=== PATIENT | female | born 2005 | race Two or more races ===

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

== ENCOUNTER 2024-01-25 08:19 | Emergency (ER) | payer MEDICAID, SELFPAY ==
[2024-01-25] VITALS (9 sets, daily range): BP systolic 85–103; BP diastolic 46–65; PULSE 69–88; RESP 12–16; TEMP 36.9–37.2; O2SAT 98–100; BMI 22.0
--- NOTE | ~2024-01-25 | US_ITS ---
EXAMINATION: US , LIMITED CLINICAL INFORMATION: Abdominal and back pain. 19 weeks' . COMPARISON: None available. TECHNIQUE: Ultrasound sonographic evaluation of the gravid uterus. FINDINGS: Placenta is posterior and free of the os. No retroplacental collections. Amniotic fluid volume appears normal. Single live intrauterine gestation is observed, cephalic. Normal movements are seen in the cardiac activity is noted to be 158 BPM. The cervix is closed. Note that this is a limited study and a formal anatomic survey was not performed. Dating metrics were not performed on this exam. And can't be said is that a 4 chamber heart regular rate and rhythm is observed and a three-vessel cord within the helical cord insertion site is seen. US/US OB limited IMPRESSION: Single live intrauterine gestation noted. Placenta posterior and free of the os.
--- NOTE | ~2024-01-25 | US_ITS ---
EXAMINATION: US RETROPERITONEAL LIMITED (RENAL ONLY) CLINICAL INFORMATION: Back pain. COMPARISON: None available. TECHNIQUE: Renal ultrasound FINDINGS: RIGHT KIDNEY: 10.6 x 4.3 x 5.7 cm (SAG x AP x TRV). The kidney is normal in size, contour, and echogenicity. Renal cortical thickness is normal. No calculi or focal parenchymal lesions. No hydronephrosis. There is mild prominence of extrarenal pelvis and dilated right ureter proximally measured 1.0 cm LEFT KIDNEY: 11.2 x 4.3 x 4 point cm (SAG x AP x TRV). The kidney is normal in size, contour, and echogenicity. Renal cortical thickness is normal. No calculi or focal parenchymal lesions. No hydronephrosis. There is questionable small pleural effusion on the left US/US renal BI IMPRESSION: Hydroureter on the right and questionably small pleural effusion on the left.
--- NOTE | 2024-01-25 08:46 | ED.GENADULT ---
HPI - General Adult General Chief complaint: Back Pain/Injury Stated complaint: back pain, dizzy, nausea / 19 weeks preg Time Seen by Provider: 01/25/24 08:45 Source: patient and RN notes reviewed Mode of arrival: ambulatory Limitations: no limitations History of Present Illness ED Provider: Lizzy Kennedy PA-C HPI narrative: This is a 18-year-old female, 19 weeks , anemia, currently followed by [facility], who presents emergency department with complaints of right low back pain x3 days. Patient reports that over the last 3 days she has had right low back pain that is constant and worsens with positional changes. She states that she has had back pain throughout her however states that this back pain is different. She also endorses some dizziness and nausea upon standing. She denies any urinary or bowel retention or incontinence. Denies any numbness or tingling. No weakness. Denies any recent trauma or injury. Denies any fevers, chills, chest pain, shortness of breath. She does report some abdominal discomfort, she states that the pain she was told is due to the stretching of her abdominal wall because of the , denies worsening over the last several days. She denies any vaginal bleeding or abnormal vaginal discharge. She does report that yesterday she developed vaginal itchiness and started herself on a topical cream that her OBGYN has prescribed during her in the past. She wishes to be tested for gonorrhea and chlamydia. She denies any other complaints or concerns at this time. complaint: Back pain Onset (ago): day(s) Radiation: non-radiation Pain Consistency: constant Relieving factors: immobilization Exacerbating factors: movement Associated symptoms: denies other symptoms Treatments prior to arrival: none Related Data Previous Rx's ?Medication ?Instructions ?Recorded diphenhydramine HCl 25 mg capsule 25 mg PO Q6H PRN itching #15 caps 08/20/21 (Benadryl) prednisone 20 mg tablet 40 mg (2 x 20 mg) PO DAILY #10 tabs 08/20/21 docusate sodium 100 mg capsule 100 mg PO BID PRN constipation #30 01/07/22 (Colace) caps ferrous sulfate 325 mg (65 mg 325 mg PO DAILY #30 tabs 01/07/22 iron) tablet nitrofurantoin 100 mg PO BID 5 days #10 caps 01/07/22 monohydrate/macrocrystals 100 mg capsule (Macrobid) ondansetron 4 mg disintegrating 4 mg PO Q8H PRN nausea and 01/07/22 tablet vomiting #20 tabs L norgest/E estradiol-E estrad 1 tab PO DAILY 84 days #84 ea 01/13/22 0.15 mg-30 mcg (84)/10 mcg(7) tabs,3mos (Seasonique) omeprazole 20 mg capsule,delayed 20 mg PO DAILY #30 caps 08/18/22 release cyclobenzaprine 5 mg tablet 5 mg PO TID PRN muscle spasm #14 04/01/23 tabs ibuprofen 600 mg tablet 600 mg PO Q8H PRN pain #20 tabs 04/01/23 lidocaine 5 % topical patch 1 patch topical DAILY #30 ea 04/01/23 amoxicillin 875 mg-potassium 1 tab PO BID 10 days #20 tabs 10/22/23 clavulanate 125 mg tablet prednisone 50 mg tablet 50 mg PO DAILY 5 days #5 tabs 10/22/23 cephalexin 500 mg capsule 500 mg PO QID 7 days #28 caps 01/25/24 Allergies Allergy/AdvReac Type Severity Reaction Status Date / Time insect venom [MOSQUITO] Allergy Mild SWELLING Verified 01/25/24 08:40 Review of Systems Review of Systems: Yes all other systems are reviewed and are negative Constitutional: Constitutional: Reports as per [facility] Past Medical History Attestation statement: The following information was validated with the patient. Medical History No known health problems Surgical History No history of previous surgery Social History Social History Alcohol intake: never Patient Tobacco Use Status: Never used Tobacco Smoked in Last 30 Days: No Advance Directives: No Do you have a plan to hurt others: No Plan Patient : Yes Physical Exam ED Vital Signs: Vital Signs - 24 hr 01/25/24 08:36 01/25/24 08:44 01/25/24 09:24 Temperature 98.9 F 98.9 F 98.4 F Pulse Rate 85 85 78 Respiratory Rate 16 16 16 Blood Pressure 94/53 L 94/53 L 95/54 L Pulse Oximetry 98 98 100 Oxygen Delivery Method Room Air Room Air Room Air 01/25/24 09:37 01/25/24 09:37 01/25/24 09:38 Temperature Pulse Rate 77 79 88 Respiratory Rate Blood Pressure 95/54 L 91/46 L 103/50 L Pulse Oximetry Oxygen Delivery Method 01/25/24 10:00 01/25/24 12:18 01/25/24 14:12 Temperature 98.6 F 98.7 F Pulse Rate 76 69 84 Respiratory Rate 16 16 12 Blood Pressure 85/51 L 96/60 102/65 Pulse Oximetry 100 100 98 Oxygen Delivery Method Room Air Room Air BMI result Body Mass Index 22.0 Const General: cooperative, comfortable and no acute distress Orientation/consciousness: patient oriented x3 Limitations: no limitations HENMT Head: Yes normal to inspection, Yes normocephalic and Yes atraumatic Ears: hearing grossly normal bilaterally General nose exam: Normal external nose present Face and sinus: Yes normal facial exam Mouth: Normal oral and palatal mucosa present, oropharynx normal and moist mucous membranes Throat: Yes posterior oropharynx normal Eyes General: appearance normal, both eyes and all related structures Eyelids: Yes eyelids normal Conjunctivae: conjunctivae normal Sclerae: sclerae normal Pupils: Equal, round and reactive pupils present EOM: EOMs intact bilaterally Neck Neck: Yes normal visual inspection, Yes full ROM and Yes no lymphadenopathy Lymphatic: no lymphadenopathy noted Chest Chest palpation & inspection: normal inspection of the chest Resp Effort & Inspection: normal respiratory effort and able to speak in complete sentences Auscultation: clear to auscultation bilaterally, no crackles, no rales, no rhonchi and no wheezes Cardio Rate: regular rate Rhythm: regular rhythm Heart sounds: S1 normal heart sound present and S2 normal heart sound present GI Other: Gravid abdomen appropriate for current , nontender Inspection: Yes normal to inspection General: Yes no CVA tenderness Back/Spine/Pelvis Other: Tenderness palpation along the right low back and right SI joint, no CVA tenderness. Back: no CVA tenderness Skin General skin exam: no rashes or lesions noted Trauma: no lacerations or abrasions Wounds: no wounds Neuro General: patient oriented x3 and moves all extremities Cranial nerves: Yes Equal, round and reactive pupils present Extrem General: Yes normal to inspection Right upper extremity: normal to inspection Left upper extremity: normal to inspection Right lower extremity: normal to inspection Left lower extremity: normal to inspection Course Reevaluation(s) Reevaluation #1: Labs returned, patient with microcytic anemia at 8.4/28.7, urine appears to be contaminated, requested repeat urine sample to rule out infection. Repeat does appear to be infectious, given Time: 12:30 Reevaluation #2: Repeat urine appears to be infected. Will treat with Keflex. Patient is anemic, she is feeling much better no longer dizzy. Advised follow-up with the OBGYN tomorrow, she has an appointment at 10:00 a.m.. She is well-appearing, vital signs improved. Given strict return precautions. She understands agrees with plan. Patient stable for discharge. Medications Administered Discontinued Medications Generic Name Dose Route Start Last Admin Trade Name Freq PRN Reason Stop Dose Admin Sodium Chloride 1,000 mls @ 999 mls/hr 01/25/24 10:09 01/25/24 13:49 Ns IV 01/25/24 11:09 Infused .Q1H1M ONE Infusion Medical Decision Making Medical Decision Making MDM Narrative: This is a 18-year-old female, , 19 weeks , who presents emergency department with complaints of atraumatic right low back pain x3 days. On arrival, mildly hypotensive at 94/53, she is nontoxic appearing. She has had no vaginal bleeding or cramping. Pain has been constant. She is also endorsing some lightheadedness and dizziness upon standing. She states that she has had some urinary frequency and urgency however attributes this to her . She has no CVA tenderness. Differential diagnoses include UTI, obstructive uropathy, lumbago. This patient presents with back pain most consistent with lumbago. Differential diagnoses includes lumbago versus musculoskeletal spasm / strain versus sciatica.No back pain red flags on history or physical. Presentation not consistent with malignancy (lack of history of malignancy, lack of B symptoms), fracture (no trauma, no bony tenderness to palpation), cauda equina (no bowel or urinary incontinence/retention, no saddle anesthesia, no distal weakness), pyelonephritis (afebrile, no CVAT, no urinary symptoms). Given patient is , as well as endorsing some dizziness, will obtain basic labs, UA, she is also requesting gonorrhea and chlamydia testing. Also ordered ultrasound OB and renal ultrasound. Plan: Labs, UA, right renal ultrasound, Ob ultrasound Differential Diagnosis Differential Diagnoses: The differential diagnosis associated with the presentation includes see above Admission/Observation Consideration of admission/observation: Escalation of care including admission/observation considered Escalation of care including admission/observation considered however given workup today not warranted at this time. Lab Data MDM Lab Attestation statement: I reviewed the patient's lab results. No leukocytosis, H&H revealing microcytic anemia at 8.4/28.7. She has a history of anemia currently being followed by her OBGYN. Chemistry within normal limits. Beta quant appropriate for 19 weeks , urine with large leuk esterases, wbc's, and trace bacteria. Consistent with UTI. Negative for chlamydia and gonorrhea. 01/25/24 09:35 01/25/24 09:35 Labs: Lab Results 01/25/24 01/25/24 01/25/24 Range/Units 09:04 09:35 09:40 WBC 5.5 (4.8-10.8) X10*3/uL RBC 4.46 (4.20-5.50) X10*6/uL Hgb 8.4 L (12.0-16.0) g/dl Hct 28.7 L (37.0-47.0) % MCV 64.3 L (80.0-98.0) fL MCH 18.8 L (27.0-33.0) pg MCHC 29.3 L (31.0-35.0) g/dl RDW 19.7 H (11.0-16.0) % Plt Count 230 (160-400) X10*3/uL MPV Not Reportable Immature Gran % (Auto) 0.4 (0.0-0.4) % Neut % (Auto) 72.6 (45-73) % Lymph % (Auto) 19.2 L (20-40) % [place] % (Auto) 7.1 (2-11) % Eos % (Auto) 0.5 (0-4) % Baso % (Auto) 0.2 (0-2) % Lymph # (Auto) 1.1 L (1.2-4.9) X10*3/uL [place] # (Auto) 0.4 (0.1-1.2) X10*3/uL Eos # (Auto) 0.0 (0.0-0.4) X10*3/uL Baso # (Auto) 0.0 (0.0-0.2) X10*3/uL Abs Immat Gran (auto) 0.02 (0.00-0.03) X10*3/uL Absolute Neuts (auto) 4.0 (2.0-8.3) x10*3/uL Absolute Nucleated RBC 0.000 (0.0-0.012) X10*3/uL Nucleated RBC % (auto) 0.0 (0.0-0.2) /100WBC Sodium 137 (135-145) mmol/L Potassium 3.7 (3.3-5.1) mmol/L Chloride 108 (96-108) mmol/L Carbon Dioxide 20 L (22-29) mmol/L Anion Gap 13 (12-20) BUN 5 L (9-16) mg/dL Creatinine 0.62 (0.5-1.4) mg/dL Estim Creat Clear Calc 99.5 Estimated GFR > 60 Random Glucose 82 (60-115) mg/dL Calcium 9.1 (8.4-10.2) mg/dL Total Bilirubin 0.3 (0.0-1.0) mg/dL Direct Bilirubin 0.1 (0.0-0.5) mg/dL AST 20 (5-31) U/L ALT 10 (0-31) U/L Alkaline Phosphatase 52 (39-117) U/L Total Protein 6.9 (6.5-8.0) g/dL Albumin 3.7 (3.5-5.0) g/dL Beta HCG, Quant 68264 mIU/mL Urine Color Yellow Urine Appearance Cloudy Urine pH 6.5 (5.0-9.0) Ur Specific [place] 1.015 (1.005-1.025) Urine Protein Trace (Neg-Trace) mg/dL Urine Glucose (UA) Negative (Negative) mg/dL Urine Ketones 40 (Negative) mg/dL Urine Blood Negative (Negative) Urine Nitrite Negative (Negative) Ur Leukocyte Esterase Large (3+) H (Negative) Urine RBC 0-2 (0-2) /HPF Urine WBC >50 H (0-5) /HPF Ur Squamous Epith Cells 11-20 (0-2) /HPF Urine Bacteria 1+ (None Seen) Hyaline Casts 0-2 (0-2) /LPF Chlam trachomat DNA PCR NOT DETECTED (Not Detect.) N.gonorrhoeae DNA (PCR) NOT DETECTED (Not Detect.) Blood Type B Positive 01/25/24 Range/Units 13:08 WBC (4.8-10.8) X10*3/uL RBC (4.20-5.50) X10*6/uL Hgb (12.0-16.0) g/dl Hct (37.0-47.0) % MCV (80.0-98.0) fL MCH (27.0-33.0) pg MCHC (31.0-35.0) g/dl RDW (11.0-16.0) % Plt Count (160-400) X10*3/uL MPV Immature Gran % (Auto) (0.0-0.4) % Neut % (Auto) (45-73) % Lymph % (Auto) (20-40) % [place] % (Auto) (2-11) % Eos % (Auto) (0-4) % Baso % (Auto) (0-2) % Lymph # (Auto) (1.2-4.9) X10*3/uL [place] # (Auto) (0.1-1.2) X10*3/uL Eos # (Auto) (0.0-0.4) X10*3/uL Baso # (Auto) (0.0-0.2) X10*3/uL Abs Immat Gran (auto) (0.00-0.03) X10*3/uL Absolute Neuts (auto) (2.0-8.3) x10*3/uL Absolute Nucleated RBC (0.0-0.012) X10*3/uL Nucleated RBC % (auto) (0.0-0.2) /100WBC Sodium (135-145) mmol/L Potassium (3.3-5.1) mmol/L Chloride (96-108) mmol/L Carbon Dioxide (22-29) mmol/L Anion Gap (12-20) BUN (9-16) mg/dL Creatinine (0.5-1.4) mg/dL Estim Creat Clear Calc Estimated GFR Random Glucose (60-115) mg/dL Calcium (8.4-10.2) mg/dL Total Bilirubin (0.0-1.0) mg/dL Direct Bilirubin (0.0-0.5) mg/dL AST (5-31) U/L ALT (0-31) U/L Alkaline Phosphatase (39-117) U/L Total Protein (6.5-8.0) g/dL Albumin (3.5-5.0) g/dL Beta HCG, Quant mIU/mL Urine Color Yellow Urine Appearance Clear Urine pH 6.5 (5.0-9.0) Ur Specific [place] 1.010 (1.005-1.025) Urine Protein Negative (Neg-Trace) mg/dL Urine Glucose (UA) Negative (Negative) mg/dL Urine Ketones 80 (Negative) mg/dL Urine Blood Negative (Negative) Urine Nitrite Negative (Negative) Ur Leukocyte Esterase Large (3+) H (Negative) Urine RBC 0-2 (0-2) /HPF Urine WBC 11-20 H (0-5) /HPF Ur Squamous Epith Cells 6-10 (0-2) /HPF Urine Bacteria Trace (None Seen) Hyaline Casts 0-2 (0-2) /LPF Chlam trachomat DNA PCR (Not Detect.) N.gonorrhoeae DNA (PCR) (Not Detect.) Blood Type Radiology Impression Discussion of test interpretation with radiology: I have reviewed the radiologist's reading. Radiologist Impression: US/US OB limited IMPRESSION: Single live intrauterine gestation noted. Placenta posterior and free of the os. Dictated By: Tru Jimenez MD US/US renal BI IMPRESSION: Hydroureter on the right and questionably small pleural effusion on the left. Dictated By: Kaila Atkins MD Discharge Plan Discharge Clinical Impression: Urinary tract infection, Back pain affecting in second trimester, Anemia in Patient Disposition: Home, Self-Care Instructions: Urinary Tract Infection in (ED) Additional Instructions: You were seen in the emergency department due to back pain. You do have evidence of a urinary tract infection. We would given you IV fluids. Your renal ultrasound does not show any kidney stones. Please take prescribed antibiotic as directed. Finish the entire course even if your feeling better. You need to follow-up with your primary care physician as you are anemic, please call today to make an appointment as this is urgent. If you develop any severe abdominal pain, vaginal bleeding, chest pain, shortness breast, worsening dizziness, you need to report to the emergency room for further evaluation. Prescriptions: New cephalexin 500 mg capsule 500 mg PO QID 7 Days Qty: 28 0RF No Action prednisone 20 mg tablet 40 mg PO DAILY Qty: 10 0RF diphenhydramine HCl [Benadryl] 25 mg capsule 25 mg PO Q6H PRN (Reason: itching) Qty: 15 0RF omeprazole 20 mg capsule,delayed release(DR/EC) 20 mg PO DAILY Qty: 30 0RF docusate sodium [Colace] 100 mg capsule 100 mg PO BID PRN (Reason: constipation) Qty: 30 1RF ondansetron 4 mg tablet,disintegrating 4 mg PO Q8H PRN (Reason: nausea and vomiting) Qty: 20 0RF nitrofurantoin monohyd/m-cryst [Macrobid] 100 mg capsule 100 mg PO BID 5 Days Qty: 10 0RF Rx Instructions: must administer with a meal/food ferrous sulfate 325 mg (65 mg iron) tablet 325 mg PO DAILY Qty: 30 0RF prednisone 50 mg tablet 50 mg PO DAILY 5 Days Qty: 5 0RF amoxicillin-pot clavulanate 875-125 mg tablet 1 tab PO BID 10 Days Qty: 20 0RF ibuprofen 600 mg tablet 600 mg PO Q8H PRN (Reason: pain) Qty: 20 0RF cyclobenzaprine 5 mg tablet 5 mg PO TID PRN (Reason: muscle spasm) Qty: 14 0RF lidocaine 5 % adhesive patch,medicated 1 patch topical DAILY Qty: 30 0RF Rx Instructions: leave on most painful area for up to 12 hrs L norgest/e.estradiol-e.estrad [Seasonique] 0.15 mg-30 mcg (84)/10 mcg (7) tablets,dose pack,3 month 1 tab PO DAILY 84 Days Qty: 84 0RF Print Language: [place]
[2024-01-25 09:40] LABS: Basophils Percent Auto 0.2 % (0-2); Eosinophils Percent Auto 0.5 % (0-4); Hematocrit 28.7 % (37.0-47.0); Hemoglobin 8.4 g/dl (12.0-16.0); Imm Gran Abs Auto 0.02 X10*3/uL (0.00-0.03); Imm Gran Pct Auto 0.4 % (0.0-0.4); Mean Corpuscular HGB Conc 29.3 g/dl (31.0-35.0); Mean Corpuscular Hemoglobin 18.8 pg (27.0-33.0); Monocytes Absolute Auto 0.4 X10*3/uL (0.1-1.2); Red Blood Count 4.46 X10*6/uL (4.20-5.50)
[2024-01-25 09:42] LABS: Lymphocytes Absolute Auto 1.1 X10*3/uL (1.2-4.9); Lymphocytes Percent Auto 19.2 % (20-40); Monocytes Percent Auto 7.1 % (2-11); Neutrophils Percent Auto 72.6 % (45-73); Platelet Count 230 X10*3/uL (160-400); Red Cell Distribution Width 19.7 % (11.0-16.0); White Blood Count 5.5 X10*3/uL (4.8-10.8)
[2024-01-25 09:45] LABS: Mean Corpuscular Volume 64.3 fL (80.0-98.0)
[2024-01-25 09:52] LABS: Appearance Urine Cloudy; Color Urine Yellow; Glucose Urine UA Negative (Negative); Leukocyte Esterase Urine Large (3+) (Negative); Nitrite Urine Negative (Negative); PH 6.5 (5.0-9.0); Specific Gravity - Urine 1.015 (1.005-1.025); UMIC TRIGGER UACC YES; Urine Blood Negative (Negative); Urine Ketones 40 mg/dL (Negative); Urine Protein Trace mg/dL (Neg-Trace)
[2024-01-25 10:05] LABS: Alanine Aminotransferase 10 U/L (0-31); Albumin Level 3.7 g/dL (3.5-5.0); Alkaline Phosphatase 52 U/L (39-117); Anion Gap 13 (12-20); Aspartate Amino Transferase 20 U/L (5-31); Bilirubin Direct 0.1 mg/dL (0.0-0.5); Bilirubin Total 0.3 mg/dL (0.0-1.0); Blood Urea Nitrogen 5 mg/dL (9-16); Calcium 9.1 mg/dL (8.4-10.2); Carbon Dioxide 20 mmol/L (22-29); Chloride 108 mmol/L (96-108); Creatinine Clr Calc Pharmacy 99.5; Estimated Glomerular Filt Rate > 60; Glucose Random 82 mg/dL (60-115); Potassium 3.7 mmol/L (3.3-5.1); Sodium 137 mmol/L (135-145); Total Protein 6.9 g/dL (6.5-8.0)
[2024-01-25 10:08] LABS: Bacteria Urine 1+ (None Seen); Hyaline Casts Urine 0-2 /LPF (0-2); RBC Urine 0-2 /HPF (0-2); UACC Culture Trigger YES; WBC Urine >50 /HPF (0-5)
[2024-01-25 10:44] LABS: HCG Quantitative 45175 mIU/mL
[2024-01-25] MEDS: 0.9 % Sodium Chloride 1,000 ML 999 ML IV (10:58)
--- NOTE | 2024-01-25 10:59 | PC.NURSE ---
IV established, IVF bolus hung.
[2024-01-25 13:06] LABS: CT PCR NOT DETECTED (Not Detect.); NG PCR NOT DETECTED (Not Detect.)
[2024-01-25 13:14] LABS: Appearance Urine Clear; Color Urine Yellow; Glucose Urine UA Negative (Negative); Leukocyte Esterase Urine Large (3+) (Negative); Nitrite Urine Negative (Negative); PH 6.5 (5.0-9.0); UMIC TRIGGER UACC YES; Urine Blood Negative (Negative); Urine Ketones 80 mg/dL (Negative); Urine Protein Negative (Neg-Trace)
[2024-01-25 13:31] LABS: Bacteria Urine Trace (None Seen); Hyaline Casts Urine 0-2 /LPF (0-2); RBC Urine 0-2 /HPF (0-2); UACC Culture Trigger YES
== END 2024-01-25 14:41 | disposition home or self-care (01) ==
PROVIDERS: Physician Assistant Medical; Emergency Provider Student in an Organized Health Care Education/Training Program; PCP Pediatrics
DX: O23.42 Unspecified infection of urinary tract in pregnancy, second trimester (principal); O99.012 Anemia complicating pregnancy, second trimester; R11.0 Nausea; Z3A.19 19 weeks gestation of pregnancy; Z79.899 Other long term (current) drug therapy
CPT/HCPCS: 36415; 76775; 76815; 80048; 80076; 81001; 84702; 85025; 86900; 86901; 87086; 87491; 87591; 96360; 96361; 99284; 99285

== ENCOUNTER 2024-08-30 12:35 | Outpatient (REF) | payer MEDICAID, SELFPAY ==
--- OUTSIDE RECORDS SUMMARY | 2024-08-30 12:52 | XMS_ITS | Encounter Summary ---
Author Organization [employer] Address [address] [place] [address] Care Team Providers Care Canoe Inspector Name Role Phone Paola Reinoso Primary Care Provider [phone] Trinity Bond MD Primary Care Provider [phone] Encounter Details Date Type Department Care Team (Late st Contact Info) Description 04/23/2023 Abstract [facility] [address] [place] [address] Paola Reinoso PNP [address], [place] [phone] Social History Tobacco Use Types Packs/Day Years Used Date Smoking Tobacco: Never Smokeless Tobacco: Never Depression Answer Date Recorded Patient Health Questionnaire-2 Score 1 04/05/2023 Comments Unknown Sex and Gender Information Value Date Recorded Sex Assigned at Female 05/11/2022 10:18 AM EDT Legal Sex Female 10:18 AM EDT Gender Identity Female 05/11/2022 10:18 AM EDT Sexual Orientation Straight 05/11/2022 10 :18 AM EDT documented as of this encounter Plan of Treatment Upcoming Encounters Date Type Department Care Team (Late st Contact Info) Description 10/06/2024 10:00 AM EDT Office Visit [facility] [address] [place], [place] [phone] Trinity Bond MD [address] [place] [address] documented as of this encounter Visit Diagnoses Not on filedocumented in this encounter Care Teams Canoe Inspector Relationship Specialty Start Date End Date Paola Reinoso PNP [address] [place] [address] PCP - General Pediatrics 06/22/18 08/25/23 Trinity Bond MD [address] [place] [address] PCP - General Internal Medicine 08/26/23 documented as of this encounter
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
--- OUTSIDE RECORDS SUMMARY | 2024-08-30 12:52 | XMS_ITS | Encounter Summary ---
Author Organization [facility] Address [address] [place] [phone] Phone Care Team Providers Care Sales Administration Manager Name Role Phone Unavailable Primary Care Provider Unavailabl e Encounter Details Date Type Department Care Team (Late st Contact Info) Description 12/16/2016 Documentation [facility] Family Medicine [facility] [place] [address] Family Medicine, Physician [place] [address] Social History Tobacco Use Types Packs/Day Years Used Date Smoking Tobacco: Never Assessed Comments Unknown Sex and Gender Information Value Date Recorded Sex Assigned at Not on file Legal Sex Female 12:20 PM EDT Gender Identity Not on file Sexual Orientation Not on file documented as of this encounter Plan of Treatment Not on file documented as of this encounter Visit Diagnoses Not on filedocumented in this encounter
--- OUTSIDE RECORDS SUMMARY | 2024-08-30 12:52 | XMS_ITS | Encounter Summary ---
Author Organization [employer] Address [address] [facility] [address] [place] [address] Care Team Providers Care Pharmacist In Charge Owner Name Role Phone Trinity Bond MD Primary Care Provider [phone] Reason for Visit * Reason Onset Date Comments Nurse Triage 08/29/2024 Encounter Details Date Type Department Care Team ([facility] st Contact Info) Description 08/29/2024 Telephone [facility] [address] [place], [place] [phone] Trinity Bond MD [address] [place], [place] [phone] Nurse Triage Social History Tobacco Use Types Packs/Day Years Used Date Smoking Tobacco: Never Smokeless Tobacco: Never Depression Answer Date Recorded Patient Health Questionnaire-9 Score 2 08/30/2024 Patient Health Questionnaire-9 Score 2 08/30/2024 Last PHQ-9: Questionnaire Data Not on file 0 08/30/2024 Housing Stability Answer Date Recorded What is your housing situation today? I have nishiafshan diana 10/28/[address] you [...] t he electric, gas, oil or water frents threatened to shut off services in your [...] encounter Miscellaneous Notes * Telephone Encounter - Jolie Renee LPN - 08/29/2024 1:37 PM EST Triage call returned to patient who reports concern of weight loss post 2 months. Has no signs of illness. Feels that her appetite is the same as prior to and is not sure why she continues to lose weight. Patient reports recent weight at 100lbs. Is not as supply was low and baby now mostly formula fed. Baby doing well. Patient reports that she just is not a big eater but that she is worried about weight. Disposition reviewed and patient in agreement with plan. ASK/PCP 08/30/24 1115am. Reviewed with patient home care recommendations and reasons to call back. Pt verbalized understanding and agrees. Protocol Used: No Protocol Available (Adult) Protocol-Based Disposition: See in Office or Video Visit within 3 Days Video visit not offered Positive Triage Question: * Nursing judgment * All higher-acuity triage questions were negative Care Advice Discussed: * Reasons To Call Back - New symptoms develop - You become worse * Telephone Encounter - Yasmine Carroll - 08/29/2024 11:02 AM EST Symptom: Weight Loss Outcome: Schedule an appointment to be seen within 24 hours Reason: Caller denied all higher acuity questions The caller accepted this outcome. documented in this encounter Plan of Treatment Upcoming Encounters Date Type Department Care Team (Late st Contact Info) Description 10/06/2024 10:00 AM EDT Office Visit [facility] MED & PEDS [address] [place] [address] Trinity Bond MD [address] [place] [address] documented as of this encounter Visit Diagnoses Not on filedocumented in this encounter Care Teams Pharmacist In Charge Owner Relationship Specialty Start Date End Date Trinity Bond MD [address] [place] [address] PCP - General Internal Medicine 08/26/23 documented as of this encounter
--- OUTSIDE RECORDS SUMMARY | 2024-08-30 12:52 | XMS_ITS | Clinical Summary ---
Author Organization [facility] Address [address] [place] [address] Care Team Providers Care Cast Iron Dipper Name Role Phone Paola Reinoso Primary Care Provider Allergies No known active allergies Medications Medication Sig Dispensed Refills Start Date End Date Status Vit-Fe Fumarate-FA ( MULTIVITAMIN/IRON PO) Take by mouth. 0 Active ferrous sulfate 325 (65 FE) MG tablet Take 1 tablet (325 mg total) by mouth every morning with breakfast. 0 Active Active Problems Problem Noted Date Diagnosed Date Anemia in 03/03/2024 Social History Tobacco Use Types Packs/Day Years Used Date Smoking Tobacco: Never Smokeless Tobacco: Never Tobacco Cessation:Counseling Given: Not Answered Alcohol Use Standard Drinks/Week Comments Never 0 (1 standard drink = 0.6 oz pur e alcohol) Sex and Gender Information Value Date Recorded Sex Assigned at Female 03/22/2024 11:43 AM EDT Gender Identity Not on file Sexual Orientation Not on file Job Start Date Occupation Industry Not on file Not on file Not on file Last Filed Vital Signs Vital Sign Reading Time Taken Comments Blood Pressure 103/58 03/29/2024 1:42 PM EDT Pulse 105 03/29/2024 1:42 PM EDT Temperature 36.5 ??C (97.7 ??F) 03/29/2024 1:42 PM ED T Respiratory Rate 18 03/29/2024 1:42 PM EDT Oxygen Saturation 100% 03/29/2024 1:42 PM EDT Inhaled Oxygen Concentration - - Weight 52.3 kg (115 lb 4.8 oz) 03/20/2024 2:04 P M EDT Height - - Body Mass Index - - Plan of Treatment Health Maintenance Due Date Last Done Comments Hepatitis C Screening 2004 Depression Screening 2016 Gonorrhea and Chlamydia Screening 2017 Preventative Health Evaluation 2022 COVID-19 Vaccine ( season) 2024 12/21/2020, 11/30/2020 Influenza Vaccine (#1) 2024 , 05/09/2020, 08/13/2017, Additional history exists DTap / Tdap / Td (7 - Td or Tdap) 06/04/2025 06/04/2015, 02/18/2009, 07/23/2005, Additional history exists Hepatitis B Vaccines Completed 2004, 2004, 2004 Pneumococcal Vaccine Completed 07/23/2005, 07/23/2005, 2004, Additional history exists RSV Ped < 20 months Aged Out No longe r eligible based on patient's age to complete this topic Care Teams Cast Iron Dipper Relationship Specialty Start Date End Date Paola Reinoso [address] [facility] [place] [address] PCP - General Pediatrics 02/02/24
--- OUTSIDE RECORDS SUMMARY | 2024-08-30 12:52 | XMS_ITS | Encounter Summary ---
Author Organization [employer] Address [address] [facility] 7[address] [place] [address] Care Team Providers Care Cattle Dehorner Name Role Phone Trinity Bond MD Primary Care Provider [phone] Encounter Details Date Type Department Care Team ([facility] st Contact Info) Description 08/30/2024 11:15 AM EST Office Visit [facility] MED [facility] PEDS [address] [place], [place] [phone] Trinity Bond MD [address] [place], [place] [phone] Weight loss (Primary Dx); Other iron deficiency anemia Social History Tobacco Use Types Packs/Day Years Used Date Smoking Tobacco: Never Smokeless Tobacco: Never Depression Answer Date Recorded Patient Health Questionnaire-9 Score 2 08/30/2024 Patient Health Questionnaire-9 Score 2 08/30/2024 Last PHQ-9: Questionnaire Data Not on file 0 08/30/2024 Housing Stability Answer Date Recorded What is your housing situation today? I have nishi lebron 10/28/[address] you li [...] AM EDT documented as of this encounter Last Filed Vital Signs Vital Sign Reading [...] Mass Index 20.27 08/30/2024 11:39 AM EST documented in this encounter Plan of Treatment Upcoming Encounters Date Type Department Care Team (Late st Contact Info) Description 10/06/2024 10:00 AM EDT Office Visit [facility] MED & PEDS [address] [place] [address] Trinity Bond MD [address] [place] [address] Scheduled Orders Name Type Priority Associated Diagnoses Orde r Schedule CBC auto differential Lab Routine Weight loss Other iron deficiency anemia Expected: 08/30/2024 (Approximate), Expires: 08/30/2025 Vitamin B12/Folate, Serum Panel Lab Routine Weight loss Other iron deficiency anemia Expected: 08/30/2024, Expires: 08/30/2025 Vitamin D, 25-Hydroxy, Total, Immunoassay Lab Routine Weight loss Other iron deficiency anemia Expected: 08/30/2024 (Approximate), Expires: 08/30/2025 Iron And Total Iron Binding Capacity Lab Routine Weight loss Other iron deficiency anemia Expected: 08/30/2024, Expires: 08/30/2025 TSH W/Reflex to FT4 Lab Routine Weight loss Other iron deficiency anemia Expected: 08/30/2024 (Approximate), Expires: 08/30/2025 documented as of this encounter Visit Diagnoses Diagnosis Weight loss- Primary Loss of weight Other iron deficiency anemia documented in this encounter Additional Health Concerns Assessment Noted Time PHQ-9 Depression Total Score: 2 08/30/19 25 12:36 PM EST documented as of this encounter Care Teams Cattle Dehorner Relationship Specialty Start Date End Date Trinity Bond MD [address] [place] [id number] PCP - General Internal Medicine 08/26/23 documented as of this encounter
--- OUTSIDE RECORDS SUMMARY | 2024-08-30 12:52 | XMS_ITS | Encounter Summary ---
Author Organization [employer] Address [address] [facility] [address] [place] [address] Care Team Providers Care Slot Floor Supervisor Name Role Phone Trinity Bond MD Primary Care Provider [phone] Encounter Details Date Type Department Care Team (Latest Contact Info) Description 08/30/2024 Travel Social History Tobacco Use Types Packs/Day Years [...] Description 10/06/2024 10:00 AM EDT Office Visit [facility] MED & PEDS [address] [place] [address] rTinity Bond MD [address] [place] [address] documented as of this encounter Visit Diagnoses Not on filedocumented in this encounter Additional Health Concerns Assessment Noted Time PHQ-9 Depression Total Score: 2 08/30/19 25 12:36 PM EST documented as of this encounter Care Teams Slot Floor Supervisor Relationship Specialty Start Date End Date Trinity Bond MD [address] [place] [address] PCP - General Internal Medicine 08/26/23 documented as of this encounter
--- OUTSIDE RECORDS SUMMARY | 2024-08-30 12:52 | XMS_ITS | Encounter Summary ---
Author Organization [employer] Address [address] [facility] 7t [place] [address] Care Team Providers Care Membership Sales Manager Name Role Phone Trinity Bond MD Primary Care Provider [phone] Reason for Visit * Reason Onset Date Comments PA 08/29/2024 Encounter Details Date Type Department Care Team ([facility] st Contact Info) Description 08/29/2024 Telephone C [facility]S [address] [place], [place] [phone] Trinity Bond MD [address] [place], [place] [phone] [place] Social History Tobacco Use Types Packs/Day Years [...] encounter Miscellaneous Notes * Telephone Encounter - Magali Haney RN - 08/29/2024 2:58 PM EST Patient scheduled appointment tomorrow. Will discuss at appointment. * Telephone Encounter - Yasmine Carroll - 08/29/2024 11:06 AM EST Tc from pt would like to know if pcp can prescribe Ensure protein shakes and also needs a letter for wic to change milk to whole instead on 1%. documented in this encounter Plan of Treatment Upcoming Encounters Date Type Department Care Team (Late st Contact Info) Description 10/06/2024 10:00 AM EDT Office Visit [facility] MED & PEDS [address] [place] [address] Trinity Bond MD [address] [place] [address] documented as of this encounter Visit Diagnoses Not on filedocumented in this encounter Care Teams Membership Sales Manager Relationship Specialty Start Date End Date Trinity Bond MD [address] [place] [address] PCP - General Internal Medicine 08/26/23 documented as of this encounter
--- OUTSIDE RECORDS SUMMARY | 2024-08-30 12:53 | XMS_ITS | Encounter Summary ---
Author Organization [facility] Address [address] [place] [phone] Phone Care Team Providers Care Door Installer Name Role Phone Unavailable Primary Care Provider Unavailabl e Encounter Details Date Type Department Care Team (Late st Contact Info) Description 12/09/2016 Documentation [facility] [place] [facility] [place] [address] Family Medicine, Physician [facility] [place] [address] Social History Tobacco Use Types [...]
--- OUTSIDE RECORDS SUMMARY | 2024-08-30 12:53 | XMS_ITS | Clinical Summary ---
Author Organization [facility] Address [address] [place] [phone] Phone Care Team Providers Care Head Field Hockey Coach Name Role Phone Unavailable Primary Care Provider Unavailabl e Immunizations Immunization Administration Dates Next Due DTaP 02/18/2009, 6,2004,08/25,2004 HPV 06/04/2015 HPV Vaccine 9 Valent 12/09/2016,04/01/2015 Hep A, ped/adol 04/01/2015,02/18/2011 Hep B, ped/adol 2004,2004,2004 HiB 07/23/2005,2004,2004 Hib (PRP-T) 2004 IPV 02/18/2009, 5,2004,06/23 Influenza Split 06/08/2007, 6,06/26/2005,05/13 Influenza, injectable, quadr ivalent, preservative free 04/01/2015,04/05/2014 MMR 02/18/2009,05/13/2005 Meningococcal Conj (Menactra) MCV4P 06/04/2015 Pneumococcal Conjugate 13-Valent 006,2004,2004,06/23 Tdap 06/04/2015 Varicella 02/18/2009,05/13/2005 Family History Relation Name Status Comments Brother Brother: Asthma Maternal Grandmother Materna l grandmother: Diabetes mellitus Mother Mother: Migrain es Social History Tobacco Use Types Packs/Day Years Used Date Smoking Tobacco: Never Assessed Comments Unknown Sex and Gender Information Value Date Recorded Sex Assigned at Not on file Legal Sex Female 12:20 PM EDT Gender Identity Not on file Sexual Orientation Not on file Last Filed Vital Signs Vital Sign Reading Time Taken Comments Blood Pressure 101/68 12/09/2016 12:00 AM EDT Pulse 73 12/09/2016 12:00 AM EDT Temperature - - Respiratory Rate - - Oxygen Saturation - - Inhaled Oxygen Concentration - - Weight 42 kg (92 lb 9.6 oz) 12/09/2016 12:00 AM EDT Height 149.9 cm (4' 11 ) 12/09/2016 12:00 AM EDT Body Mass Index 18.7 12/09/2016 12:00 AM EDT Plan of Treatment Health Maintenance Due Date Last Done Comments Men B Vaccine (1 of 2 - Standard) 2020 Influenza Vaccines (#1) 2024 04/01/20 15, 04/05/2014, 06/08/2007, Additional history exists COVID-19 Vaccine ( - 2023- season) 2024 DTaP,Tdap,and Td Vaccines (7 - Td or Tdap) 06/04/2025 06/04/2015, 02/18/2009, 07/23/2005, Additional history exists Hepatitis B Vaccines Completed 2004, 2004, 2004 HIB Vaccines Completed 07/23/2005, 10/10, 2004, Additional history exists Pneumococcal Vaccine Completed 07/23/2005, 2004, 2004, Additional history exists IPV Vaccines Completed 02/18/2009, 10/10, 2004, Additional history exists MMR Vaccines Completed 02/18/2009, 05/13/2005 Varicella Vaccines Completed 02/18/2009, 05/13/2005 Hepatitis A Vaccines Completed 04/01/2015, 02/19/20 11 Meningococcal Vaccine Aged Out 06/04/2015 No jovany gracie eligible based on patient's age to complete this topic HPV Vaccines Completed 12/09/2016, 05/13, 04/01/2015 Insurance [facility] NON PCC
--- OUTSIDE RECORDS SUMMARY | 2024-08-30 12:53 | XMS_ITS | Encounter Summary ---
Author Organization [facility] Address [address] [place] [phone] Phone Care Team Providers Care Headline Writer Name Role Phone Unavailable Primary Care Provider Unavailabl e Encounter Details Date Type Department Care Team (Late st Contact Info) Description 12/09/2016 Documentation [facility] [place] Medicine [facility] [place] [address] Family Medicine, Physician [facility] [place] [address] Social History Tobacco Use Types [...]
--- OUTSIDE RECORDS SUMMARY | 2024-08-30 12:53 | XMS_ITS | Encounter Summary ---
Author Organization [facility] Address [address] [place] [phone] Phone Care Team Providers Care Mine Patrol Name Role Phone Unavailable Primary Care Provider Unavailabl e Encounter Details Date Type Department Care Team (Late st Contact Info) Description 12/16/2016 Documentation [facility] [place] Medicine [facility] [place] [address] Family Medicine, Physician [facility] [place] [address] Social History Tobacco Use Types [...]
--- OUTSIDE RECORDS SUMMARY | 2024-08-30 12:53 | XMS_ITS | Encounter Summary ---
Author Organization [facility] Address [address] [place] [phone] Phone Care Team Providers Care Student Services Representative Name Role Phone Unavailable Primary Care Provider Unavailabl e Encounter Details Date Type Department Care Team (Late st Contact Info) Description 12/09/2016 Documentation [facility] [place] Family Medicine [facility] [place] [address] Family Medicine, Physician [facility] [place] [address] Social History Tobacco Use Types [...]
--- OUTSIDE RECORDS SUMMARY | 2024-08-30 12:53 | XMS_ITS | Encounter Summary ---
Author Organization [facility] Address [address] [place] [phone] Phone Care Team Providers Care Car Hostler Name Role Phone Unavailable Primary Care Provider Unavailabl e Encounter Details Date Type Department Care Team (Late st Contact Info) Description 12/16/2016 Documentation [facility] [place] [facility] [place] [address] Family Medicine, [place] [address] Social History Tobacco Use Types [...]
--- OUTSIDE RECORDS SUMMARY | 2024-08-30 12:53 | XMS_ITS | Clinical Summary ---
Author Organization [facility] [address] [facility] lding Address [address] [place] [address] Phone Care Team Providers Care Sample Builder Name Role Phone Paola Reinoso NP Primary Care Provider [phone] Allergies No known active allergies Medications 28 mg iron- 800 mcg per tablet Take 1 tablet by mouth 1 (one) time each day. 01/25/2024 Active levonorgestrel-e thinyl estradiol (SEASONALE) 0.15 mg-30 mcg (91) per tablet Take 1 tablet by mouth 1 (one) time each day. 84 tablet 3 07/26/2024 6 Active Active Problems Problem Noted Date Diagnosed Date state 06/20/2024 Breast feeding status of mother 06/20/2024 39 weeks gestation of 06/18/2024 Supervision of other normal , antepartu m 06/05/2024 Overview (06/05/2024): 1. [facility] site: [address] 2. Delivery site: [facility] 3. Mobile Mommas: 4. Dating criteria: LMP confirmed by 1st trimester ultrasound 5. Blood type: B neg 6. Genetic screening: panaroma Date: 11/24 Result: Low risk female MSAFP - negative 6. GBS: Date: 7. FOB name: Kristalion - not involved 8. Plans A. Epidural or other pain management - B. Labor support identified - C. Tdap - Date:, Flu - Date: D. Breast or Bottle feed: E. Baby's name - F. Circumcision - n/a 9. Hospital Course: Rh negative state in antepartum period Overview (06/05/2024): RhD requested through [facility] Anemia during in second trimester 11/09 Overview (03/06/2024): Anemia er visit 01/25 8.4/28.7, Fe supp ordered Heme/onc referral placed on 01/31 Abnormal TSH 11/25/2023 Overview (06/05/2024): Possible hyperthyroid- additional labs sent 11/25/2023 Labs: TSH, free T4, total T3 , TRAb (order # [id number]) at initial OB Urgent Endocrinology referral at diagnosis Propoylthiouracil first trimester (to be prescribed by Endo) Methimazole 2nd and 3rd May need a beta jacinda for symptomatic control Total T4 and triiodothyronine (T3) should be maintained at 1.5 times above the non reference range MFM consult Detailed anatomy US Growth Q4 weeks for women with TRab Inform Peds at delivery if TRab positive Deliver by due date Maternal varicella, non-immune 11/25/2023 Overview (06/05/2024): Vaccinate PP Adjustment disorder, unspecified 04/05/2023 Weight loss 01/04/2023 Overview (06/05/2024): unexplained weight loss Anxiety 11/02/2022 Allergic rhinitis 02/22/2012 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 Encounters Date Type Department Care Team Description 07/26/2024 10:00 AM EST Routine Obstetrics and Gynecology [address] [phone] Una Celeste MD Routine follow-up (Primary Dx) 06/18/2024 7:26 PM EST Anesthesia Event [facility] [address] [place] [phone] Marcial Slade MD Kriz, Petra, MD 06/18/2024 4:24 AM EST - 06/20/2024 11:30 AM EST Hospital Encounter [facility] [address] [place] [phone] Rosamaria Munguia MD Discharge Disposition: Home or Self Care 06/14/2024 Telephone Obstetrics and Gynecology - [address] [phone] Elvis Mcnair CNM Problem 06/13/2024 1:15 PM EST Routine Obstetrics and Gynecology - [address] [phone] Elvis Mcnair CNM Encounter for supervision of other normal in third trimester (Primary Dx); 39 weeks gestation of 05/30/2024 11:15 AM EST Routine Obstetrics and Gynecology - [address] [phone] Elvis Mcnair CNM Encounter for supervision of other normal in third trimester (Primary Dx); 37 weeks gestation of from Last 3 Months Immunizations Name Administration Dates Next Due Influenza trivalent, 0.5mL, preservative free (Fluarix; FluLaval; Fluzone) ages 6mo and older (Afluria) 3 years and older 06/20/2024 Social History Tobacco Use Types Packs/Day Years Used Date Smoking Tobacco: Never Smokeless Tobacco: Never Alcohol Use Standard Drinks/Week Comments Never 0 (1 standard drink = 0.6 oz pur e alcohol) Housing Instability Answer Date Recorde d Are you worried that in the next 2 months you may not have stable housing? No 06/18/2024 Food Access & Nutrition Answer Date Rec orded Do you have access to a vari ety of food including fruits and vegetables? Yes 06/18/2024 Health Literacy Answer Date Recorded How often do you need to hav e someone help you when you read instructions, pamphlets, or other written material from your doctor or pharmacy? Never 06/18/2024 Caregiver: How often do you need to have someone help you when you read instructions, pamphlets, or other written material from your doctor or pharmacy? Not on file 06/18/2024 Financial Risk Answer Date Recorded How hard is it for you to pa y for the very basics like food, housing, medical care, and air conditioning / heating? Not very hard 06/18/2024 Transportation Answer Date Recorded Has the lack of transportati on kept you from meetings, work, or from getting things needed for daily living? No Has the lack of transportati on kept you from medical appointments or from getting medications? No 06/18/2024 Social Isolation Answer Date Recorded How often do you feel lonely or isolated from those around you? Not asked 06/18/2024 Food Risk Answer Date Recorded Within the past 12 months we worried whether our food would run out before we got money to buy more. Never true 06/18/2024 Within the past 12 months th e food we bought just didn't last and we didn't have money to get more. Never true 06/18/2024 Dependent Care Answer Date Recorded Do you need help finding or paying for care for your loved ones. For example, director child development center or elderly care for an older adult? No 06/18/2024 Education Answer Date Recorded Do you think completing more education or training, like finishing a GED, going to college, or learning a trade, would be helpful for you? N/A 06/18/2024 Employment and Income Answer Date Recor ded During the last four weeks, have you been actively looking for work? No 06/18/2024 Living Situation Answer Date Recorded What is your living situation? 1 08/19/2023 Interpersonal Safety Answer Date Record ed Physical Abuse 06/18/2024 Verbal Abuse 06/18/2024 Comments No Sex and Gender Information Value Date Recorded Sex Assigned at Not on file Legal Sex Female 11:05 AM EDT Gender Identity Not on file Sexual Orientation Not on file Obstetrics History Para Term AB IAB SAB Ectopic Multiple Livin g Live Births 2 1 1 1 1 0 1 1 Date Outcome GA Total Labor Labor/2nd/3rd Weight Sex Type Anes PTL Jessica A1 A5 Name Clin 2021 SAB 6w0 d SAB 2023 Term 39w 6d 3h 40m 1h 31m/2h 04m/0h 05m 2930 g (103.4 oz) F Vag-S pont Epidur al N Livin g 8 8 Byronmichael primitivo Phan s Aron bonilla CNM Complications:None Delivery Location:[facility] ([facility] Summary Episode Dates Number of Fetuses Estimated Date of Delivery 05/24/2024 - Present (08/30/2024) 1 06/19/2024 (set by Elvis simon CNM on 05/24/2024 based on Ultrasound on 12/09/2023) Dating Summary Based On LAUREN GA Diff Ultrasound on 12/09/2023 06/19/2024 Working GA:12w3d Overview and Plan :Souza sex:Female Support person:darryl Chen ( mother and fob ) Delivery Plans Post-Delivery Plans Planned delivery method:Vaginal Feeding intentions:Exclusive Planned anesthesia:Epidural Acceptable blood products:All Vitals Pregravid Weight Height TWG (As of 08/30/2024) Pregrav id BMI 50.3 kg (111 lb) 1.499 m (59 ) 7.258 kg (16 lb) 22.41 Date GA Fund Present FHR Mvmt BP Weight Edema Alb Glu Ket Dil/ Eff/Sta 05/24/20 24 36w2d 106/7 1 57.6 kg 0/0/-3 06/13/20 24 39w1d 103/6 7 59 kg 1/50/-3 06/18/20 24 39w6d Inpatient data not displayed here. See encounter summary. Notes Progress Notes - Routine Pre - 07/26/2024 - GA:39w6d 07/26/2024 - 39w6d - Una Frazier MD Visit Encounter Date: 07/26/2024 Chief Complaint: Chief Complaint Patient presents with Follow-up Subjective: Wilmer Gates is a 19 y.o. who presents for visit. She is 6 weeks s/p SV delivery. She is breast and bottle feeding without difficulty. Lochia stopped. Has not yet had intercourse or menses. Mood is good, EPDS 0. Safe at home. Desires to go back on her combined OCP for contraception. No contraindications. was complicated by anemia. Review of Systems: As in HPI. All other systems reviewed and negative. Patient Active Problem List Diagnosis Anemia during in second trimester Abnormal TSH Adjustment disorder, unspecified Allergic rhinitis Anxiety Binocular vision disorder Maternal varicella, non-immune Weight loss Supervision of other normal , antepartum Rh negative state in antepartum period 39 weeks gestation of state Breast feeding status of mother OB History Para Term AB Living 2 1 1 1 1 SAB IAB Ectopic Multiple Live Births 1 0 1 # Outcome Date GA Lbr Golden/2nd Weight Sex Type Anes PTL Lv 2 Term 06/18/24 39w6d 01:31 / 02:04 2930 g (103.4 oz) F Vag-Spont EPI N JESSICA 1 SAB 2021 6w0d SAB No past medical history on file. Social History Socioeconomic History Marital status: Single Spouse name: Not on file Number of children: Not on file Years of education: Not on file Highest education level: Not on file Occupational History Not on file Tobacco Use Smoking status: Never Smokeless tobacco: Never Substance and Sexual Activity Alcohol use: Never Drug use: Not on file Sexual activity: Not on file Other Topics Concern Not on file Social History Narrative Not on file Prior to Admission medications Medication Sig Start Date End Date Taking? Authorizing Provider 28 mg iron- 800 mcg per tablet Take 1 tablet by mouth 1 (one) time each day. 01/25/24 Yes Historical Provider, levonorgestrel-ethinyl estradiol (SEASONALE) 0.15 mg-30 mcg (91) per tablet Take 1 tablet by mouth 1 (one) time each day. 07/26/24 07/25/25 Una Celeste MD No Known Allergies Objective: Vitals: 07/26/24 1043 BP: 111/70 Pulse: 84 Resp: 16 Weight: 47.4 kg (104 lb 6.4 oz) Gen: Alert, cooperative. Well-appearing on today's exam Cardiovascular: regular rate and rhythm, no m/r/g Lung: clear to auscultation bilaterally, no wheezing, ronchi, normal respiratory effort Breast: Normal appearance, no masses or tenderness, no nipple retraction or dimpling bilaterally. No axillary or supraclavicular adenopathy Abdomen: No scars. Soft, non-tender. No masses palpable, no organomegaly. Lymph: No inguinal lymphadenopathy. Extremities: no calf tenderness or edema, atraumatic without deformity Skin: Skin color, texture, turgor normal. No rashes or lesions Psych: Mood and affect appropriate. Pelvic: External Genitalia: Normal appearance, without lesions Vagina: Normal appearance. Mucosa is pink, normal rugae, no abnormal discharge. No lesions. Cervix: Normal appearance, without discharge or lesions. Uterus: Normal size and shape. Anteverted position. Non-tender Adnexa: No adnexal masses, tenderness bilaterally. Assessment/Plan: 19 y.o. with: 1. Contraception-OCP prescribed 2. Discussed nutrition, exercise, sexual activity, control methods, supervisor electronics testing care, S&S of PPD and referral information. 3. AE in one year No problem-specific Assessment & Plan notes found for this encounter. No orders of the defined types were placed in this encounter. Una Celeste MD Progress Notes - [facility] [place] [facility] - 07/26/2024 - GA:39w6d 07/26/2024 - 39w6d - Noris Wiley RN Duplicate same day visit. This visit cancelled. Progress Notes - Hospital En counter - 06/20/2024 - GA:39w6d 06/19/2024 - 39w6d - Dev Hudson CNM Obstetrics Progress Note Subjective Subjective Pain: reports mild Bleeding: lochia minimal PO's: regular diet Voiding: without difficulty Ambulating: well Feeding: breast feeding only Objective Objective: Vital signs: (most recent): Blood pressure 103/63, pulse 91, temperature 37.1 ??C (98.8 ??F), temperature source Temporal, resp. rate 16, height 1.499 m (59 ), weight 57.6 kg (127 lb), SpO2 99%, unknown if currently . Output: Producing urine. Lungs: Normal effort. Heart: Normal rate. Abdomen: Abdomen is soft. Extremities: Normal range of motion. Pulses: Distal pulses are intact. Neurological: Patient is alert and oriented to person, place and time. Skin: Warm and dry. Vitals Temp: 37.1 ??C (98.8 ??F) (06/19 515) Heart Rate: 91 (06/19 515) Resp: 16 (06/19 515) BP: 103/63 (06/19 515) Physical Exam General: well Chest/Breasts: nipples intact and breasts soft Fundus Fundal Tone: Firm Fundal Position: Right Fundus Location: 2 above umbilicus (had pt get up to bathroom to void) Lochia Lochia Color: Rubra Amount: Moderate Lochia Odor: None Clots: None Perineum Appearance: Intact, Swollen Intervention: Ice on, Emily bottle, Medicated pads Extremities: symmetric and no edema Data Labs Reviewed and Significant for: Lab Results Component Value Date RBC 4.60 06/18/2024 HCT 36.9 06/18/2024 Principal Problem: 39 weeks gestation of Active Problems: Anemia during in second trimester Rh negative state in antepartum period Status Information for the patient's : Abigail Gates [[id number]] [facility] 7009/[facility] 7009-1 Problem-based Assessment and Plan Omarlina Gates is a 19 y.o. day 1 s/p Vaginal, Spontaneous. 1. Post care: meeting all goals 2. Hemodynamics: stable 3. Pain: controlled 4. Method of Feeding: breast feeding only 5. Anticipate discharge tomorrow Dev Hudson CNM 06/19/2024 06/19/2024 - guerline - Dev Thorne RN Pt pushing 06/19/2024 - guerline - Dev Thorne RN Time out-1925 Placement of catheter 1926 Test dose 1927 Bolus-1932 Progress Notes - Routine Pre - 06/13/2024 - GA:39w1d 06/13/2024 - 39w1d - Elvis Mcnair CNM Subjective Chief Complaint Patient presents with Routine Visit Wilmer Gates is a 19 y.o. at 39w1d with a working estimated date of delivery of 06/08/2024, by Last Menstrual Period who presents for a routine visit. She denies vaginal bleeding, leakage of fluid, decreased movements, or contractions. Objective Physical Exam Vitals BP: 103/67 Weight: 59 kg (130 lb) Fundal Height (cm): 39 cm Heart Rate: 135 Dilation/Effacement/Station Dilation: 1 Effacement (%): 50 Station: -3 Ob check list: Tdap due: given Flu vaccine due: declines Afp due: neg Depression screening: n/a If glucose completed: neg result Gbs: neg Problem list reviewed. Assessment/Plan Encounter for supervision of other normal in third trimester (Primary) 39 weeks gestation of Nv will scheduled iol at 41wks if not delivered Progress Notes - Routine Pre - 05/30/2024 - GA:37w1d 05/30/2024 - 37w1d - Elvis Mcnair CNM Subjective Chief Complaint Patient presents with Routine Visit Wilmer Gates is a 19 y.o. at 37w1d with a working estimated date of delivery of 06/08/2024, by Last Menstrual Period who presents for a routine visit. She denies vaginal bleeding, leakage of fluid, decreased movements, or contractions. Objective Physical Exam Vitals BP: 98/65 Weight: 58.1 kg (128 lb) Fundal Height (cm): 36 cm Heart Rate: 150 Ob check list: Tdap due: given Flu vaccine due: declines Afp due: neg Depression screening: n/a If glucose completed: neg result Gbs: neg Problem list reviewed. Assessment/Plan Encounter for supervision of other normal in third trimester (Primary) 37 weeks gestation of F/u routinely wkly Progress Notes - Routine Pre nazario - 05/24/2024 - GA:36w2d 05/24/2024 - 36w2d - Elvis Mcnair CNM Subjective Chief Complaint Patient presents with Routine Visit Wilmer Gates is a 19 y.o. at 36w2d with a working estimated date of delivery of 06/08/2024, by Last Menstrual Period who presents for a routine visit. She denies vaginal bleeding, leakage of fluid, decreased movements, or contractions. Objective Physical Exam Vitals BP: 106/71 Weight: 57.6 kg (127 lb) Fundal Height (cm): 36 cm Heart Rate: 155 Dilation/Effacement/Station Dilation: Closed Effacement (%): 0 Station: -3 Ob check list: Tdap due: yes and given Flu vaccine due: declines Afp due: neg If glucose completed: neg result Problem list reviewed. Assessment/Plan Supervision of other normal , antepartum (Primary) 36 weeks gestation of Screening, , for Streptococcus B - Strep B molecular study; Future Reviewed labor signs F/u routinely qweek Last Filed Vital Signs Vital Sign Reading Time Taken Comments Blood Pressure 111/70 07/26/2024 10:43 AM EST Pulse 84 07/26/2024 10:43 AM EST Temperature 36.9 ??C (98.5 ??F) 06/20/2024 7:00 AM ES T Respiratory Rate 16 07/26/2024 10:43 AM EST Oxygen Saturation 99% 06/20/2024 7:00 AM EST Inhaled Oxygen Concentration - - Weight 47.4 kg (104 lb 6.4 oz) 07/26/2024 10:43 AM EST Height 149.9 cm (4' 11 ) 06/18/2024 8:10 PM EST Body Mass Index 21.09 06/18/2024 8:10 PM EST Plan of Treatment Health Maintenance Due Date Last Done Comments Meningococcal B Vacine (1 of 2 - Standard) 2020 Annual Well Child Visit (3-21 years old) 02/04/2024 Depression Screening 02/04/2024 COVID-19 Vaccine (3 2023-25 season) 2024 12/21/2020, 11/30/2020 Gonorrhea/Chlamydia Screening 01/24/2025 01/25/2024, 01/07/2022 Social Influencers of Health Screening 06/18/2025 06/18/2024 DTaP,Tdap,and Td Vaccines (8 - Td or Tdap) 04/04/2034 04/04/2024, 06/04/2015, 02/18/2009, Additional history exists Hepatitis B Vaccines Completed 2004, 2004, 2004 HIB Vaccines Completed 07/23/2005, 10/10, 2004, Additional history exists Pneumococcal Vaccine: Pediatrics (0 to 5 Years) and At-Risk Patients (6 to 64 Years) Completed 07/23/2005, 2004, 2004, Additional history exists IPV Vaccines Completed 02/18/2009, 10/10, 2004, Additional history exists MMR Vaccines Completed 02/18/2009, 05/13/2005 Varicella Vaccines Completed 02/18/2009, 05/13/2005 Hepatitis A Vaccines Completed 04/01/2015, 02/19/20 11 HPV Vaccines Completed 12/09/2016, 05/13, 04/01/2015 Meningococcal ACWY Vaccine Completed 05/09/2020, HIV Screening Completed 11/25/2023, 10/11, 11/02/2022 Hepatitis C Screening Completed 01/25/2024 Influenza Vaccine Completed 06/20/2024, , 05/09/2020, Additional history exists RSV Immunization Patients Under 20 months Aged Out No longer eligible based on patient's age to complete this topic Procedures Procedure Name Priority Date/Time Associated Diagnosis Comments RHIG EVALUATION Routine 06/19/2024 1:57 PM EST ANESTHESIA EPIDURAL BLOCK Routine 06/18/2024 7:26 PM EST CBC WITH AUTO DIFFERENTIAL STAT 06/18/2024 5:40 AM EST TREPONEMA PALLIDUM ANTIBODY WITH REFLEX TO RPR AND PARTICLE AGGLUTINATION STAT 06/18/2024 5:40 AM EST TYPE AND SCREEN STAT 06/18/2024 5:40 AM EST CBC AND DIFFERENTIAL STAT 06/18/2024 5:40 AM EST ..MISCELLANEOUS REFERENCE LAB TEST 06/01/2024 HEPATITIS C SCREENING Routine 01/25/2024 HIV SCREENING Routine 11/02/2022 GONORRHEA/CHLAMYDIA SCRREENING Routine 01/07/2022 from Last 3 Months or Most Recently Relevant to Health Maintenance Results * RhIG evaluation (06/19/2024 1:57 PM EST) [facility] Signature Bleed Screen Negative 06/19/2024 2:42 PM EST [facility] RhIG Candidate 1 Vial 300 mcg 06/19/2024 2:42 PM EST [facility] Blood Venous blood specimen / Unknown Venipuncture / Unknown 06/19/2024 1:57 PM EST 06/19/2024 2:01 PM EST Rosamaria Munguia MD LAB BLOOD BANK TEST ORDERABLES E dited Result - Final [facility] [address] [place] [address], [place] [phone] * Epidural Block (06/18/2024 7:26 PM EST) Narrative Marcial Slade MD - 06/18/2024 7:26 PM EST Marcial Slade MD ? 06/18/2024 ??7:49 PM Epidural Block Patient location during procedure: OB Start time: 06/18/2024 7:26 PM End time: 06/18/2024 7:33 PM Reason for block: labor epidural Staffing Performed: anesthesiologist Anesthesiologist: Marcial Slade MD Performed by: Marcial Slade MD Authorized by: Marcial Slade MD ?? Preanesthetic Checklist Completed: patient identified, IV checked, risks and benefits discussed, surgical consent, monitors and equipment checked, pre-op evaluation and timeout performed Epidural Patient Position: sitting Prep: Sterile technique including hat / mask / sterile gloves utilized. Monitoring: heart rate and continuous pulse ox (NiBP) Approach: midline Vertebral Space: L3-L4 Needle Needle type: Tuohy Needle gauge: 17 G Needle length: 3.5 Needle insertion depth: 4 cm Catheter at skin depth: 9 cm Test dose: lidocaine 1.5% with epinephrine 1-to-200,000 and negative Assessment Events: incremental injection every 5 mL Additional Notes Sterile technique including hat, mask, sterile gloves, sterile drape used. Local: Lido 1% - 3 ml ___1__ attempt(s) Level: L 3-4 Initial bolus: 10 Indication: Labor Analgesia Additional Monitoring: NIBP Negative paresthesia on insertion of needle or catheter Negative aspiration of blood and/or CSF per epidural catheter No patient symptoms on injection of local anesthetic Sterile Tegaderm dressing with tape reinforcement applied. Marcial Slade MD ANESTHESIA ORDERABLES Edited Result - Final * Treponema pallidum antibody with reflex to RPR and particle agglutination (06/18/2024 5:40 AM EST) T. Pallidum Antibodies Negative Negative LAB CHEMISTRY METHOD 06/18/2024 6:45 AM EST [facility] Blood Venous blood specimen / Unknown Venipuncture / Unknown 06/18/2024 5:40 AM EST 06/18/2024 5:47 AM EST Malina Forrester CNM LAB BLOOD ORDERABLES Final Re sult [facility] [address] [place] [address], [place] [phone] * (ABNORMAL) CBC auto differential (06/18/2024 5:40 AM EST) [facility] WBC 9.3 4.8 - 10.8 K/mcL LAB HEMETOLOGY METHOD 06/18/2024 7:32 AM [facility] RBC 4.60 3.80 - 4.80 M/mcL LAB HEMETOLOGY METHOD 06/18/2024 7:32 AM [facility] Hemoglobin 11.4(L) 11.5 - 16.0 g/dL LAB HEMETOLOGY METHOD 06/18/2024 7:32 AM [facility] Hematocrit 36.9 35.0 - 47.0 % LAB HEMETOLOGY METHOD 06/18/2024 7:32 AM [facility] MCV 79.5 79.0 - 98.0 FL LAB HEMETOLOGY METHOD 06/18/2024 7:32 AM [facility] MCH 24.6(L) 27.0 - 32.0 pcg LAB HEMETOLOGY METHOD 06/18/2024 7:32 AM [facility] MCHC 30.9(L) 32.0 - 37.0 g/dL LAB HEMETOLOGY METHOD 06/18/2024 7:32 AM [facility] RDW 19.0(H) 11.0 - 15.0 % LAB HEMETOLOGY METHOD 06/18/2024 7:32 AM [facility] Platelets 212 130 - 400 K/mcL LAB HEMETOLOGY METHOD 06/18/2024 7:32 AM [facility] MPV LAB HEMETOLOGY METHOD 06/18/2024 7:32 AM [facility] Comment:Not Measured NRBC 0.0 <1.0 % LAB HEMETOLOGY METHOD 06/18/2024 7:32 AM [facility] NRBC Absolute 0.00 <0.10 K/mcL LAB HEMETOLOGY METHOD 06/18/2024 7:32 AM [facility] Neutrophils Relative 69.6 % LAB HEMETOLOGY METHOD 06/18/2024 7:32 AM [facility] Lymphocytes Relative 19.8 % LAB HEMETOLOGY METHOD 06/18/2024 7:32 AM [facility] Monocytes Relative 8.6 % LAB HEMETOLOGY METHOD 06/18/2024 7:32 AM [facility] Eosinophils Relative 0.8 % LAB HEMETOLOGY METHOD 06/18/2024 7:32 AM [facility] Basophils Relative 0.2 % LAB HEMETOLOGY METHOD 06/18/2024 7:32 AM [facility] Immature Granulocytes Relative 1.0 % LAB HEMETOLOGY METHOD 06/18/2024 7:32 AM [facility] Neutrophils Absolute 6.45 1.50 - 7.00 K/mcL LAB HEMETOLOGY METHOD 06/18/2024 7:32 AM [facility] Lymphocytes Absolute 1.84 1.00 - 5.00 K/mcL LAB HEMETOLOGY METHOD 06/18/2024 7:32 AM [facility] Monocytes Absolute 0.80 0.20 - 1.00 K/mcL LAB HEMETOLOGY METHOD 06/18/2024 7:32 AM [facility] Eosinophils Absolute 0.07 0.00 - 0.50 K/mcL LAB HEMETOLOGY METHOD 06/18/2024 7:32 AM [facility] Basophils Absolute 0.02 0.00 - 0.20 K/mcL LAB HEMETOLOGY METHOD 06/18/2024 7:32 AM [facility] Immature Granulocytes Absolute 0.09(H) 0.00 - 0.03 K/mcL LAB HEMETOLOGY METHOD 06/18/2024 7:32 AM [facility] Blood Venous blood specimen / Unknown Venipuncture / Unknown 06/18/2024 5:40 AM EST 06/18/2024 5:47 AM EST Malina Forrester [facility] BLOOD ORDERABLES Final Re sult [facility] [address] [place] [address], [place] [phone] * Type and screen (06/18/2024 5:40 AM EST) [facility] ABO Group B 06/18/2024 10:54 AM EST [facility] Rh Type Negative 06/18/2024 10:54 AM EST [facility] Antibody Screen Negative 06/18/2024 10:54 AM EST [facility] Blood Venous blood specimen / Unknown Venipuncture / Unknown 06/18/2024 5:40 AM EST 06/18/2024 5:48 AM EST Malina Forrester [facility] BLOOD BANK TEST ORDERABLE S Final Result [facility] [address] [place] [address], [place] [phone] * Miscellaneous reference lab test (06/01/2024) Provider Onamanda [facility] BLOOD ORDERABLES Final Re sult * Hepatitis C Screening (01/25/2024) Pathologist [facility] Hepatitis C Screening abstracted Historical Provider HEALTH MAINTENANCE Final Result * HIV Screening (11/02/2022) Pathologist [facility] HIV Screening abstracted Historical Provider HEALTH MAINTENANCE Final Result * Gonorrhea/Chlamydia Screening (01/07/2022) Pathologist [facility] Gonorrhea/Chla mydia Screening abstracted Historical Provider HEALTH MAINTENANCE Final Result from Last 3 Months or Most Recently Relevant to Health Maintenance Insurance MEDICAID - [place] Advance Directives * Full Code - Confirmed (Latest Code Status on File) Date Activated Date Inactivated Comments 06/18/2024 5:04 AM 06/20/2024 1:52 PM This code s tatus was ascertained in the following way: Code status discussion: discussion with patient To update the patient's code status, place a code status order. Do not modify or discontinue any currently active code status orders. Care Teams Sample Builder Relationship Specialty Start Date End Date Paola Reinoso NP [address] [address] PCP - General Nurse Practitioner 07/25/24
--- OUTSIDE RECORDS SUMMARY | 2024-08-30 12:53 | XMS_ITS | Encounter Summary ---
Author Organization [employer] Address [address] [facility] 7[address] [place] [address] Care Team Providers Care Gas Line Servicer Name Role Phone Paola Reinoso Primary Care Provider [phone] Trinity Bond MD Primary Care Provider [phone] Encounter Details Date Type Department Care Team (Late st Contact Info) Description 11/04/2022 Orders Only [facility] [address] [place] [address] Laura Urena FNP Social History Tobacco Use Types Packs/Day Years Used Date Smoking Tobacco: Never Smokeless Tobacco: Never Comments Unknown Sex and Gender Information Value Date Recorded Sex Assigned at Female 05/11/2022 10:18 AM EDT Legal Sex Female 10:18 AM EDT Gender Identity Female 05/11/2022 10:18 AM EDT Sexual Orientation Straight 05/11/2022 10 :18 AM EDT COVID-19 Exposure Response Date Recorded In the last 10 days, have yo u been in contact with someone who was confirmed or suspected to have Coronavirus/COVID-19? No / Unsure 11/02/2022 10:39 AM EDT documented as of this encounter Plan of Treatment Upcoming Encounters Date Type Department Care Team (Late st Contact Info) Description 10/06/2024 10:00 AM EDT Office Visit [facility] MED & PEDS [address] [place], [place] [phone] Trinity Bond MD [address] [place], [place] [phone] documented as of this encounter Visit Diagnoses Not on filedocumented in this encounter Care Teams Gas Line Servicer Relationship Specialty Start Date End Date Paola Reinoso PNP [address] [place] [address] PCP - General Pediatrics 06/22/18 08/25/23 Trinity Bond MD [address] [place] [address] PCP - General Internal Medicine 08/26/23 documented as of this encounter
--- OUTSIDE RECORDS SUMMARY | 2024-08-30 12:53 | XMS_ITS | Encounter Summary ---
Author Organization [facility] Address [address] [place] [address] Phone Care Team Providers Care Denitrator Operator Name Role Phone Unavailable Primary Care Provider Unavailabl e Encounter Details Date Type Department Care Team (Late st Contact Info) Description 02/25/2017 Conversion Encounter [facility] - [address] [phone] Social History Tobacco Use Types Packs/Day Years [...]
[2024-08-30 14:21] LABS: MANUAL DIFF FLAG NO
[2024-08-30 14:26] LABS: Basophils Percent Auto 0.6 % (0-2); Eosinophils Absolute Auto 0.1 X10*3/uL (0.0-0.4); Eosinophils Percent Auto 1.2 % (0-4); Hematocrit 43.4 % (37.0-47.0); Hemoglobin 14.1 g/dl (12.0-16.0); Imm Gran Abs Auto 0.02 X10*3/uL (0.00-0.03); Imm Gran Pct Auto 0.4 % (0.0-0.4); Lymphocytes Absolute Auto 1.7 X10*3/uL (1.2-4.9); Lymphocytes Percent Auto 33.7 % (20-40); Mean Corpuscular HGB Conc 32.5 g/dl (31.0-35.0); Mean Corpuscular Hemoglobin 26.6 pg (27.0-33.0); Mean Corpuscular Volume 81.9 fL (80.0-98.0); Monocytes Absolute Auto 0.4 X10*3/uL (0.1-1.2); Monocytes Percent Auto 8.1 % (2-11); Neutrophils Absolute Auto 2.8 x10*3/uL (2.0-8.3); Platelet Count 284 X10*3/uL (160-400); Red Cell Distribution Width 19.1 % (11.0-16.0); White Blood Count 5.1 X10*3/uL (4.8-10.8)
[2024-08-30 14:46] LABS: Iron 88 mcg/dL (30-160); Percent Iron Saturation 30 % (15-50); Total Iron Binding Capacity 296 mcg/dL (228-428); Unsaturated Iron Binding 208 ug/dL
[2024-08-30 14:58] LABS: TSH reflex Free T4 0.79 uIU/mL (0.32-4.0)
[2024-08-30 15:03] LABS: Vitamin D 25-OH Total 19.4 ng/mL (>30)
[2024-08-30 15:10] LABS: Folate 6.4 ng/mL (> or = 4.0); Vitamin B12 565 pg/mL (200-900)
== END 2024-08-30 12:36 | disposition home or self-care (01) ==
LOC: HO.CHCLDS 12:35
PROVIDERS: Visit Provider Pediatrics
DX: R63.4 Abnormal weight loss (principal); D50.8 Other iron deficiency anemias
CPT/HCPCS: 36415; 82306; 82607; 82746; 83540; 84443; 85025

== ENCOUNTER 2025-03-23 13:15 | Outpatient (REF) | payer MEDICAID, SELFPAY ==
--- OUTSIDE RECORDS SUMMARY | 2025-03-23 15:45 | XMS_ITS | Clinical Summary ---
Author Organization [facility] [address] [facility] Address [address] [place] [address] Phone Care Team Providers Care Security Ambassador Name Role Phone Paola Reinoso NP Primary Care Provider Allergies No known active allergies Medications 28 [...] m 06/05/2024 Overview (06/05/2024): 1. [facility] site: [address] 2. Delivery site: [facility] 3. Mobile Mommas: 4. 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 For example, child monitor or elderly care for an older adult? [...] Sexual Orientation Not on file Obstetrics History * This document contains information received from the source organization and may not represent a complete record from that organization. Para Term AB IAB SAB Ectopic Multiple Livin g Live Births 2 1 1 0 1 1 Date Outcome GA Total Labor Labor/2nd/3rd Weight Sex Type Anes PTL Pascale A1 A5 Name Clin 2021 2023 Term 39w 6d 3h 40m 1h 31m/2h 04m/0h 05m 2930 g (103.4 oz) F Vag-S pont Epidur al N Livin g 8 8 Rene bonilla CNM Complications:None Delivery Location:[facility] ([facility]) Last Filed Vital Signs Vital Sign Reading Time Taken Comments Blood Pressure 111/70 07/26/2024 10:43 AM EST Pulse 84 07/26/2024 10:43 AM EST Temperature 36.9 C (98.5 F) 06/20/2024 7:00 AM EST Respiratory Rate 16 07/26/2024 10:43 AM EST Oxygen Saturation 99% 06/20/2024 7:00 AM EST Inhaled Oxygen Concentration - - Weight 47.4 kg (104 lb 6.4 oz) 07/26/2024 10:43 AM EST Height 149.9 cm (4' 11 ) 06/18/2024 8:10 PM EST Body Mass Index 21.09 06/18/2024 8:10 PM EST Plan of Treatment Health Maintenance Due Date Last Done Comments Meningococcal B Vaccine (1 of 2 - Standard) 2020 Annual Well Child Visit (3-21 years old) 02/04/2024 Depression Screening 07/12/2024 Gonorrhea/Chlamydia Screening 01/24/2025 01/25/2024, 01/07/2022 COVID-19 Vaccine ( - season) 2025 12/21/2020, 11/30/2020 Influenza Vaccine (#1) 2025 , 06/24/2021, 05/09/2020, Additional history exists Social Influencers of Health Screening 06/18/2025 06/18/2024 DTaP,Tdap,and Td Vaccines (8 - Td or Tdap) 04/04/2034 04/04/2024, 06/04/2015, 02/18/2009, Additional history exists Hepatitis B Vaccines Completed 2004, 2004, 2004 HIB Vaccines Completed 07/23/2005, 10/10, 2004, Additional history exists Pneumococcal Vaccine: Pediatrics (0 to 5 Years) and At-Risk Patients (6 to 49 Years) Completed 07/23/2005, 2004, 2004, Additional history exists IPV Vaccines Completed 02/18/2009, 10/10, 2004, Additional history exists MMR Vaccines Completed 02/18/2009, 05/13/2005 Varicella Vaccines Completed 02/18/2009, 05/13/2005 Hepatitis A Vaccines Completed 04/01/2015, 02/19/20 11 HPV Vaccines Completed 12/09/2016, 05/13, 04/01/2015 Meningococcal ACWY Vaccine Completed 05/09/2020, HIV Screening Completed 11/25/2023, 10/11, 11/02/2022 Hepatitis C Screening Completed 01/25/2024 RSV Immunization Patients Under 20 months Aged Out No longer eligible based on patient's age to complete this topic Procedures Procedure Name Priority Date/Time Associated Diagnosis Comments HEPATITIS C SCREENING Routine 01/25/2024 HIV SCREENING Routine 11/02/2022 GONORRHEA/CHLAMYDIA SCRREENING Routine 01/07/2022 from Last 3 Months or Most Recently Relevant to Health Maintenance Results * Hepatitis C Screening (01/25/2024) [facility] Hepatitis C Screening abstracted Historical Provider HEALTH MAINTENANCE Final Result * HIV Screening (11/02/2022) HIV Screening abstracted Historical Provider HEALTH MAINTENANCE Final Result * Gonorrhea/Chlamydia Screening (01/07/2022) Gonorrhea/Chla mydia Screening abstracted us Historical Provider HEALTH MAINTENANCE Final Result from [...] currently active code status orders. Care Teams Security Ambassador Relationship Specialty Start Date End Date Paola Reinoso NP [address] [address] [place] [address] PCP - General Nurse Practitioner 07/25/24
--- OUTSIDE RECORDS SUMMARY | 2025-03-23 15:45 | XMS_ITS | Encounter Summary ---
Author Organization [facility] Address [address] [place] [address] Phone Care Team Providers Care Adult Health Clinical Nurse Specialist Name Role Phone Unavailable Primary Care Provider Unavailabl e Encounter Details Date Type Department Care Team (Late st Contact Info) Description 12/09/2016 Documentation [facility] [place] [facility] [place] [address] Family Medicine, Physician [facility] [place] [address] Social History Tobacco Use Types [...]
--- OUTSIDE RECORDS SUMMARY | 2025-03-23 15:45 | XMS_ITS | Clinical Summary ---
Author Organization [facility] Address [address] [place] [address] Care Team Providers Care Air Tank Assembler Name Role Phone Paola Reinoso Primary Care Provider [phone] Allergies No known active allergies Medications Medication [...] 105 03/29/2024 1:42 PM EDT Temperature 36.5 C (97.7 F) 03/29/2024 1:42 PM EDT Respiratory Rate 18 03/29/2024 1:42 PM EDT [...] Health Evaluation 2022 COVID-19 Vaccine ( season) 2025 12/21/2020, 11/30/2020 Influenza Vaccine (#1) 2025 , 05/09/2020, 08/13/2017, Additional history exists DTap / Tdap / Td (7 - Td or Tdap) 06/04/2025 06/04/2015, 02/18/2009, 07/23/2005, Additional history exists Hepatitis B Vaccines Completed 2004, 2004, 2004 Pneumococcal Vaccine Completed 07/23/2005, 07/23/2005, 2004, Additional history exists RSV Ped < 20 months Aged Out No longe r eligible based on patient's age to complete this topic Care Teams Air Tank Assembler Relationship Specialty Start Date End Date Paola Reinoso [address] [facility] [place] [address] PCP - General Pediatrics 02/02/24
--- OUTSIDE RECORDS SUMMARY | 2025-03-23 15:45 | XMS_ITS | Encounter Summary ---
Author Organization [facility] Address [address] [place] [phone] Phone Care Team Providers Care Research Software Engineer Name Role Phone Unavailable Primary Care Provider Unavailabl e Encounter Details Date Type Department Care Team (Late st Contact Info) Description 12/16/2016 Documentation [facility] Family Medicine [facility] [place] [address] Family Medicine, Physician [facility] [place] [address] Social History Tobacco Use Types [...]
--- OUTSIDE RECORDS SUMMARY | 2025-03-23 15:45 | XMS_ITS | Encounter Summary ---
Author Organization [facility] Address [address] [place] [phone] Phone Care Team Providers Care Ornamental Iron Erector Name Role Phone Unavailable Primary Care Provider Unavailabl e Encounter Details Date Type Department Care Team (Late st Contact Info) Description 12/16/2016 Documentation [facility] [place] [facility] [place] [address] Family Medicine, Physician [facility] [place] [address] Social History Tobacco Use Types [...]
--- OUTSIDE RECORDS SUMMARY | 2025-03-23 15:45 | XMS_ITS | Clinical Summary ---
Author Organization [facility] Address [address] [place] [phone] Phone Care Team Providers Care Blade Grader Operator Name Role Phone Unavailable Primary Care [...] 2 - Standard) 2020 Influenza Vaccines (#1) 2025 04/01/20 15, 04/05/2014, 06/08/2007, Additional history exists COVID-19 Vaccine ( - season) 2025 DTaP,Tdap,and Td Vaccines (7 - Td or [...] HPV Vaccines Completed 12/09/2016, 05/13, 04/01/2015 Insurance [facility] NON PCC
--- OUTSIDE RECORDS SUMMARY | 2025-03-23 15:45 | XMS_ITS | Encounter Summary ---
Author Organization [facility] Address [address] [place] [address] Phone Care Team Providers Care Furnace Checker Name Role Phone Unavailable Primary Care Provider Unavailabl e Encounter Details Date Type Department Care Team (Late st Contact Info) Description 02/25/2017 Conversion Encounter [facility] - [address] [phone] Social History Tobacco Use Types Packs/Day Years [...]
--- OUTSIDE RECORDS SUMMARY | 2025-03-23 15:45 | XMS_ITS | Encounter Summary ---
Author Organization [facility] Address [address] [place] [address] Phone Care Team Providers Care Briefcase Sewer Name Role Phone Unavailable Primary Care Provider Unavailabl e Encounter Details Date Type Department Care Team (Late st Contact Info) Description 12/09/2016 Documentation [facility] [place] [facility] [place] [address] Family Medicine, Physician [facility] [place] [address] Social History Tobacco Use Types [...]
--- OUTSIDE RECORDS SUMMARY | 2025-03-23 15:45 | XMS_ITS | Encounter Summary ---
Author Organization [facility] Address [address] [place] [phone] Phone Care Team Providers Care Sample Room Supervisor Name Role Phone Unavailable Primary Care Provider Unavailabl e Encounter Details Date Type Department Care Team (Late st Contact Info) Description 12/09/2016 Documentation [facility] [place] Family Medicine [facility] [address] Family Medicine, Physician [facility] [place] [address] Social History Tobacco Use Types [...]
--- OUTSIDE RECORDS SUMMARY | 2025-03-23 15:45 | XMS_ITS | Encounter Summary ---
Author Organization [facility] Address [address] [place] [phone] Phone Care Team Providers Care Payroll Bookkeeper Name Role Phone Unavailable Primary Care Provider Unavailabl e Encounter Details Date Type Department Care Team (Late st Contact Info) Description 12/16/2016 Documentation [facility] [facility] [place] [address] Family Medicine, Physician [facility] [place] [address] Social History Tobacco Use Types [...]
[2025-03-23 16:07] LABS: CT PCR NOT DETECTED (Not Detect.); NG PCR NOT DETECTED (Not Detect.)
== END 2025-03-23 13:16 | disposition home or self-care (01) ==
LOC: HO.CHCLNP 13:15
PROVIDERS: Visit Provider Pediatrics
DX: Z11.3 Encounter for screening for infections with a predominantly sexual mode of transmission (principal); Z11.8 Encounter for screening for other infectious and parasitic diseases; A56.8 Sexually transmitted chlamydial infection of other sites
CPT/HCPCS: 87491; 87591